=== PATIENT | female | born 1960 | race Caucasian/White ===

== ENCOUNTER 2017-05-15 15:20 | Outpatient (CLI) | payer BC | END 2017-05-15 15:21 | disposition home or self-care (01) | LOC: BICMAMMO 15:20 | PROVIDERS: ATTEND Obstetrics & Gynecology | DX: Z12.31 Encounter for screening mammogram for malignant neoplasm of breast (principal); Z80.3 Family history of malignant neoplasm of breast | CPT/HCPCS: 77063; 77067 ==

== ENCOUNTER 2018-03-16 09:55 | Day surgery (SDC) | payer BC ==
[2018-03-15 12:14] VITALS: BMI 33.8
[2018-03-16] MEDS ORDERED: PROPOFOL 200 MG/20 ML VIAL ONE (11:14)
[2018-03-16] MEDS ORDERED: Ondansetron PF 4 MG/2 ML Vial ONE (11:14)
--- NOTE | 2018-03-16 13:45 | MRI ---
MRI CERVICAL SPINE NONCONTRAST: 03/16/2018 HISTORY: A 57-year-old female with bilateral cervical radiculopathy. Bilateral hand numbness (hypesthesia). FINDINGS: Vertebral body heights are maintained. There is straightening of the cervical curvature. The cervic al spinal cord is normal in size and signal. Mild to moderate disk space narrowing at C4-C5 and C6-C 7. No high-grade facet DJD at any level. No subluxation. C1-C2: No central stenosis. C2-C3: Normal. C3-C4: Normal. C4-C5: Small central focal disk protrusion versus disk-osteophyte complex abutting the ventral surfa ce of the spinal cord without causing significant central stenosis. No neural foraminal stenosis. C5-C6: Normal. C6-C7: There is a right paracentral and right lateral focal disk herniation that narrows the proxima l aspect of the right neural foramen and impinges on the exiting right C7 nerve root, at the junction between the neural foramen and the spinal canal. Overall mild central spinal canal stenosis. No le ft neural foraminal stenosis. C7-T1: There is effacement of the fat in the left neural foramen, suggestive of a possible inflammat ory process, although the etiology of this is uncertain. There is questionable degenerative bony hyp ertrophy at the junction between the left first rib and what may represent left lateral endplate oste ophytes or far lateral disc herniation. No right neural foraminal stenosis. No central stenosis. IMPRESSION: 1. Right lateral focal disk herniation at C6-C7, impinging on the right C7 nerve root. 2. Suspicious for impingement and/or inflammation involving the left c8 nerve root, at the left C7-T 1 neural foramen. POS: [facility]
== END 2018-03-16 14:10 | disposition home or self-care (01) ==
LOC: SDC/OP 09:55
PROVIDERS: ATTEND Neurological Surgery
DX: M50.123 Cervical disc disorder at C6-C7 level with radiculopathy (principal); M48.02 Spinal stenosis, cervical region; Z79.899 Other long term (current) drug therapy; Z88.0 Allergy status to penicillin; Z88.2 Allergy status to sulfonamides; Z88.5 Allergy status to narcotic agent
CPT/HCPCS: 72141; J2405; J2704

== ENCOUNTER 2018-03-30 05:25 | Outpatient (CLI) | payer BC ==
[2018-03-30 13:21] LABS: Hemoglobin 13.1 g/dL (12.0-16.0); Mean Corpuscular Hemoglobin 28.1 pg (27.0-31.0); Mean Platelet Volume 8.1 fL (7.4-10.4); Platelet Count 242 thou/uL (130-400); RBC Distribution Width 11.6 % (11.5-14.5); Red Blood Cell (RBC) Count 4.68 mill/uL (4.20-5.40); White Blood Cell (WBC) Count 5.2 thou/uL (4.8-10.8)
[2018-03-30 13:50] LABS: Anion Gap 12 mmol/L (10-20); BUN (Urea Nitrogen) 16 mg/dL (9.8-20.1); Calc. Creatinine Clearance 0 mL/min (70-130); Calcium 9.4 mg/dL (7.8-10.44); Carbon Dioxide 26 mmol/L (22-29); Chloride 106 mmol/L (98-107); Estimated GFR-MDRD 67; Glucose 126 mg/dL (70-105); Potassium 3.9 mmol/L (3.5-5.1); Sodium 140 mmol/L (136-145)
== END 2018-03-30 05:26 | disposition home or self-care (01) ==
LOC: LABBT 05:25
PROVIDERS: ATTEND Neurological Surgery
DX: Z01.818 Encounter for other preprocedural examination (principal); M54.12 Radiculopathy, cervical region
CPT/HCPCS: 80048; 85027; 93005; 93010

== ENCOUNTER 2019-08-20 14:55 | Outpatient (CLI) | payer BC ==
--- NOTE | 2019-08-20 15:29 | MMO ---
Left Breast MAMMO Unilat Diag DDI LT+ROE. CLINICAL HISTORY: Patient is 58 years old and is seen for additional evaluation requested from prior study. The patient has the following family history of breast cancer: paternal grandmother, malignant (generic); paternal aunt, malignant (generic) and maternal aunt, malignant (generic). The patient has no personal history of cancer. The patient has a history of left Skin punch biopsy - benign. VIEWS: The views performed were: left craniocaudal with tomosynthesis; left mediolateral oblique with tomosynthesis; and left mediolateral with tomosynthesis. FILMS COMPARED: The present examination has been compared to prior imaging studies performed at [facility] on 05/03/2016, 05/15/2017 and 08/20/2019, and at [facility] on 07/17/2019. This study has been interpreted with the assistance of computer-aided detection. MAMMOGRAM FINDINGS: The breast is heterogeneously dense, which could obscure a lesion on mammography. The asymmetry seen at screening mammography does not persist at additional imaging, compatible with superimposed tissue. There are no suspicious masses, suspicious calcifications, or new areas of architectural distortion. IMPRESSION: THERE IS NO MAMMOGRAPHIC EVIDENCE OF MALIGNANCY. A ROUTINE FOLLOW-UP MAMMOGRAM IN 1 YEAR IS RECOMMENDED. THE RESULTS OF THIS EXAM WERE SENT TO THE PATIENT. ACR BI-RADS Category 2 - Benign finding MAMMOGRAPHY NOTE: 1. A negative mammogram report should not delay a biopsy if a dominant of clinically suspicious mass is present. 2. Approximately 10% to 15% of breast cancers are not detected by mammography. 3. Adenosis and dense breasts may obscure an underlying neoplasm. Reported by: ALMAZ BONILLA MD Electonically Signed: [id number]
== END 2019-08-20 14:56 | disposition home or self-care (01) ==
LOC: BICMAMMO 14:55
PROVIDERS: ATTEND Obstetrics & Gynecology
DX: R92.8 Other abnormal and inconclusive findings on diagnostic imaging of breast (principal)
CPT/HCPCS: G0279

== ENCOUNTER 2021-07-28 16:30 | Outpatient (CLI) | payer BC | END 2021-07-28 16:31 | disposition home or self-care (01) | LOC: SLEEPLAB 16:30 | PROVIDERS: ATTEND Internal Medicine | DX: G47.33 Obstructive sleep apnea (adult) (pediatric) (principal); R51.9 Headache, unspecified; F32.9 Major depressive disorder, single episode, unspecified; G47.00 Insomnia, unspecified | CPT/HCPCS: 95800 ==

== ENCOUNTER 2021-10-21 19:30 | Outpatient (CLI) | payer BC | END 2021-10-21 19:31 | disposition home or self-care (01) | LOC: SLEEPLAB 19:30 | PROVIDERS: ATTEND Internal Medicine | DX: G47.33 Obstructive sleep apnea (adult) (pediatric) (principal) | CPT/HCPCS: 95811 ==